=== PATIENT | female | born 1995 | race Caucasian/White ===

== ENCOUNTER 2016-11-19 15:10 | Observation (INO) | payer OTHER ==
--- NOTE | ~2016-11-19 | CT2 ---
[facility] A Service of [facility] RADIOLOGY TEXT RESULTS PATIENT: TUAN ANGEL LOCATION: C4B 451-01 : [birth year] UNIT #: [id number] AGE: [address]: Clovis Whitt III, MD SEX: F ORDER DR: [id number] [address] [address] [id number] MR#: [id number] Acc #: [id number] NAME: TUAN ANGEL : 1995 SEX: F STUDY DATE/TIME: 11/19/2016 17:34 UNIT: SED ROOM: STUDY DESCRIPTION: CT Abd and Pelv W Cont Attending Physician: Marilyn Sinclair Ordering Physician: Staff Doctor Not On Primary Care Physician: Sue Doyle M.D. MEDICAL IMAGING REPORT This report is preliminary unless electronic signature is present. EXAM CT abdomen and pelvis with contrast 11/19/2016 HISTORY 21-year-old female with right-sided abdominal pain for 3 days. Nausea and vomiting. COMPARISON None. TECHNIQUE Helical scan performed through the abdomen and pelvis following administration of IV contrast. Coronal and sagittal reformatted images. This CT exam was performed with one or more of the following radiation dose reduction techniques: automatic control, adjustment of mA and/or kV according to patient size, and iterative reconstruction. FINDINGS Visualized lung bases are unremarkable. The liver, spleen, pancreas, gallbladder, both adrenal glands, and both kidneys are within normal limits. Abdominal aorta normal in course and caliber without dissection. Small bowel is unremarkable without obstruction. The appendix is abnormally dilated and fluid-filled. There is periappendiceal inflammatory stranding as well as multiple suspected appendicoliths. There is a small amount of periappendiceal fluid which extends into the pelvis. No loculated fluid collections to suggest abscess. Colon is otherwise unremarkable. No free intraperitoneal air. The urinary bladder is unremarkable. 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 Adnexa are unremarkable. No acute bony abnormality. IMPRESSION [facility] A Service of [facility] RADIOLOGY TEXT RESULTS PATIENT: TUAN ANGEL LOCATION: C4B 451-01 : [birth year] UNIT #: [id number] AGE: [address]: Clovis Whitt III, MD SEX: F ORDER DR: 1. Acute appendicitis with multiple suspected appendicoliths. There is some free fluid surrounding the appendix which extends into the pelvis. No loculated drainable fluid collections to suggest abscess. 2. 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 Dictated by... Dustin Hartmann M.D. THIS IS AN ELECTRONICALLY VERIFIED REPORT Dustin Hartmann M.D. at 11/22/2016 7:18 AM SHELBY/robles TD: 11/20/2016 03:31 JOB #: [id number] MEDICAL IMAGING REPORT Page 1 of 1
--- NOTE | ~2016-11-19 | HP ---
Unit #: [id number] #: [id number] Patient: TUAN ANGEL [id number] [address] [address] [id number] MR#: [id number] NAME: TUAN ANGEL ROOM: [facility] Age: Sex: F Admission Date: 11/19/2016 : 1995 Attending Physician: Clovis Whitt III, M.D. Primary Care Physician: Sue Doyle M.D. HISTORY AND PHYSICAL CHIEF COMPLAINT Right lower quadrant pain. HISTORY OF PRESENT ILLNESS This is a 21-year-old, healthy, lady who has had right lower quadrant pain with nausea and vomiting for slightly greater than 24 hours. She has had no prior episodes and denies any change in bowel habits. PAST MEDICAL HISTORY Negative. PAST SURGICAL HISTORY Negative. MEDICATIONS She is on no medications. ALLERGIES She has no known drug allergies. SOCIAL HISTORY She denies any tobacco or alcohol use. FAMILY HISTORY Negative. REVIEW OF SYSTEMS She is noted to feel warm, but, otherwise, has not had any documented fevers. It is otherwise as above. PHYSICAL EXAMINATION VITAL SIGNS: Temperature is 97.8, heart rate 73, respiratory rate 16, and blood pressure is 118/67. GENERAL APPEARANCE: She is in no acute distress. HEENT: Pupils are equal and reactive to light and accommodation and her extraocular muscles are intact. NECK: Without masses or bruits. LUNGS: Show good breath sounds bilaterally with equal air exchange. CARDIAC: Shows regular rate and rhythm without murmur. ABDOMEN: Soft and nondistended. She has 2-3+ tenderness in the right lower quadrant. EXTREMITIES: Without edema or cyanosis. NEUROLOGIC: She is alert and oriented. There are no focal deficits. Unit #: [id number] #: [id number] Patient: TUAN ANGEL DIAGNOSTIC STUDIES LABORATORY: White blood count was normal. IMAGING: CT scan showed appendicitis. OVERALL IMPRESSION This is a 21-year-old lady who has acute appendicitis. She needs to undergo a laparoscopic appendectomy. I did describe the procedure including risks and benefits. She understands that and wishes to proceed. Dictated by Clovis Whitt III, M.D. VCL/valery TD: 11/20/2016 10:01 JOB #: [id number] HISTORY AND PHYSICAL Page 1 of 1 X Clovis Whitt III, MD HISTORY AND PHYSICAL
--- NOTE | ~2016-11-19 | OR ---
Unit #: [id number] #: [id number] Patient: TUAN ANGEL [id number] [address] [place], [place] [address] [id number] [place] MR#: [id number] NAME: TUAN ANGEL ROOM: [facility] Date of Procedure: 11/19/2016 Admission Date: 11/19/2016 Surgeon: Clovis Whitt III, M.D. : 1995 Attending Physician: Clovis Whitt III, M.D. Primary Care Physician: Sue Doyle M.D. OPERATIVE REPORT PREOPERATIVE DIAGNOSIS Acute appendicitis. POSTOPERATIVE DIAGNOSIS Acute appendicitis. PROCEDURE PERFORMED Laparoscopic appendectomy. ANESTHESIA General. SPECIMENS Appendix to Pathology. COMPLICATIONS None apparent. ESTIMATED BLOOD LOSS Minimal. INDICATIONS FOR PROCEDURE This is a 21-year-old lady, presented from [facility] with acute appendicitis. She was brought in for laparoscopic appendectomy. DESCRIPTION OF PROCEDURE After consent was obtained, the patient was brought to the operating room and placed in the supine position. General anesthetic was administered and her abdomen was prepped and draped in standard surgical fashion. I initially tried to use a Veress needle to obtain CO2 pneumoperitoneum at the umbilicus. I had difficulty getting safe passage of that, so I used a 5-mm Optiview to enter the peritoneal cavity in the right lateral abdomen. I obtained CO2 pneumoperitoneum. I then placed a 5-mm port in the supraumbilical region and the suprapubic region. I replaced the initial port with a 12-mm port in the right lateral abdomen. She had significant acute appendicitis with a very dilated appendix. Fortunately, the base of the appendix was normal caliber without any inflammation. I created a window at the base of the appendix and the mesoappendix. I fired 2 separate blue loads across the base of the appendix and one white load across the mesoappendix. I placed the appendix in an EndoCatch bag. This was extracted through the 12-mm port site with only minimal dilatation. I then used two 4x4s to soak up the associated inflammatory fluid in the Unit #: [id number] #: [id number] Patient: TUAN ANGEL right lower pelvic area. There was also a tiny bit of bleeding from our staple line, which was cauterized. At the end of the case, I had good hemostasis. All needle, sponge, and instrument counts were correct x2. I removed all the trocars and I reapproximated the fascia at the right lateral port incision with a neoClose device. The incisions were all injected with 0.25% plain Marcaine. I reapproximated the skin edges with interrupted 4-0 Vicryl subcuticular suture. Steri-Strips were then applied. The patient tolerated the procedure without any problems and returned to the recovery room in stable condition. Dictated by... Clovis Whitt III, M.D. VCL/martha TD: 11/20/2016 09:38 JOB #: [id number] OPERATIVE REPORT Page 1 of 1 X Clovis Whitt III, MD X PROCEDURE OPERATIVE NOTE
[~2016-11-19 15:10] MED LIST: BENTYL20 M1; PEPCID AC20 M2; ZOFRAN ODT4 MG; [UNRECOGNIZED DRUG - CODE] PO
[2016-11-19 16:45] LABS: URINE APPEARANCE CLEAR; URINE BLOOD NEG (NEG); URINE COLOR YELLOW; URINE GLUCOSE NEG (NORM); URINE KETONE 1+ (NEG); URINE LEUKOCYTE ESTERASE NEG (NEG); URINE NITRATE NEG (NEG); URINE PH 5.5 (5-8); URINE SOURCE CLEAN CATCH; URINE SPECIFIC GRAVITY >=1.030 (1.003-1.035); URINE UROBILINOGEN 0.2 MG/DL (NORM)
[2016-11-19 16:48] LABS: MICRO INDICATED? NO; URINE BILIRUBIN NEG (NEG); URINE PROTEIN NEG (NEG)
[2016-11-19 16:50] LABS: BASOPHIL% 0.2 % (0-2.5); DIFF IND NO; HEMATOCRIT 41.7 % (35.0-45.0); HEMOGLOBIN 14.4 gm/dL (12.0-16.0); LYMPHOCYTE# 0.8 X10e3 (1.0-3.5); LYMPHOCYTE% 7.3 % (17.0-45.0); MEAN CELL VOLUME 86.3 FL (83-96); MEAN CORPUSCULAR HEMOGLOBIN 29.8 PG (28-34); MEAN CORPUSCULAR HGB CONC 34.5 g/dL (30-36); MEAN PLATELET VOLUME 9.7 FL (6.5-11.5); MONOCYTE# 1.2 X10e3 (0-1.0); MONOCYTE% 11.6 % (3.0-12.0); NEUTROPHIL# 8.5 X10e3 (1.5-7.1); NEUTROPHIL% 80.9 % (40-75); PLATELET COUNT 149 X10e3 (140-420); RED BLOOD COUNT 4.83 X10e (3.90-5.30); RED CELL DISTRIBUTION WIDTH 12.4 % (11.0-15.5); WHITE BLOOD COUNT 10.6 X10e3 (4.0-10.5)
[2016-11-19 17:08] LABS: ALBUMIN SERUM 4.4 g/dL (3.5-5.0); BILIRUBIN, DIRECT 0.1 mg/dL (0.0-0.2); BILIRUBIN,INDIRECT 0.5 mg/dL (0.0-0.9); BILIRUBIN,TOTAL 0.6 mg/dL (0.2-2.0); BUN/CREATININE RATIO 18.33; CALCIUM SERUM 9.1 mg/dL (8.4-10.2); CREATININE SERUM 0.6 mg/dL (0.6-1.4); GLOM FILT RATE Estimated 131.2 mL/min (>60); POTASSIUM 3.8 mmol/L (3.5-5.1); PROTEIN TOTAL SERUM 7.4 g/dL (6.0-8.3)
[2016-11-20 03:57] LABS: BASOPHIL% 0.1 % (0-2.5); HEMATOCRIT 34.3 % (35.0-45.0); LYMPHOCYTE# 1.1 X10e3 (1.0-3.5); LYMPHOCYTE% 12.6 % (17.0-45.0); MEAN CELL VOLUME 85.3 FL (83-96); MEAN CORPUSCULAR HEMOGLOBIN 28.9 PG (28-34); MEAN CORPUSCULAR HGB CONC 33.9 g/dL (30-36); MEAN PLATELET VOLUME 9.5 FL (6.5-11.5); MONOCYTE% 11.4 % (3.0-12.0); NEUTROPHIL# 6.8 X10e3 (1.5-7.1); NEUTROPHIL% 75.9 % (40-75); PLATELET COUNT 131 X10e3 (140-420); RED BLOOD COUNT 4.02 X10e (3.90-5.30); RED CELL DISTRIBUTION WIDTH 12.3 % (11.0-15.5)
[2016-11-20 03:59] LABS: DIFF IND NO; HEMOGLOBIN 11.6 gm/dL (12.0-16.0)
[2016-11-20] MEDS ORDERED: HYDROCODON-ACE1 EAC9 PO (10:37)
== END 2016-11-20 12:39 | disposition home or self-care (01) | DRG 395 ==
LOC: SED 15:10 → CED 16:15 → SED 16:15 → CPACUOF 21:13 → CED 21:13 → CPACUOF 21:40 → C4B 21:40 → CPACUOF 22:33 → C4B 22:33
PROVIDERS: Physician Assistant; Surgery
DX: K35.80 Unspecified acute appendicitis (principal)
CPT/HCPCS: 36415; 74177; 80048; 80076; 81003; 83690; 84703; 85025; 88304; 96361; 96365; 96375; 96376; 99285; G0378; J0330; J1885; J2250; J2270; J2405; J2543; J2710; J3010; Q9967